=== PATIENT | female | born 1965 | race Caucasian/White ===

== ENCOUNTER 2016-11-25 16:35 | Emergency (ER) | payer BC ==
--- NOTE | 2016-11-25 17:40 | DIAGNOSTIC IMAGING REPORT ---
PROCEDURE: CT HEAD WITHOUT CONTRAST INDICATION: RIGHT SIDE NUMBNESS; HEADACHE TECHNIQUE: Noncontrast axial images with sagittal and coronal reformations. COMPARISON: None. FINDINGS: Sulci, ventricular system, and brain parenchyma are normal. Right choroid plexus cyst. No evidence of acute intracranial process. Visualized mastoids and sinuses are clear. IMPRESSION: 1. Negative non-enhanced head CT. 2. Findings discussed with Dr. Sullivan at 05:39 p.m.[facility] Time
--- NOTE | 2016-11-25 17:40 | DIAGNOSTIC IMAGING REPORT ---
PROCEDURE: CT HEAD WITHOUT CONTRAST INDICATION: RIGHT SIDE NUMBNESS; HEADACHE TECHNIQUE: Noncontrast axial images with sagittal and coronal reformations. COMPARISON: None. FINDINGS: Sulci, ventricular system, and brain parenchyma are normal. Right choroid plexus cyst. No evidence of acute intracranial process. Visualized mastoids and sinuses are clear. IMPRESSION: 1. Negative non-enhanced head CT. 2. Findings discussed with Dr. Sullivan at 05:39 p.m.[facility] Time
--- NOTE | 2016-11-25 17:44 | DIAGNOSTIC IMAGING REPORT ---
PROCEDURE: XR CHEST 2 VIEW INDICATION: CHEST PAIN TECHNIQUE: PA and lateral view. COMPARISON: None. FINDINGS: Lungs are clear. Cardiovascular structures are normal. Bony thorax is unremarkable. IMPRESSION: 1. Negative chest.
--- NOTE | 2016-11-25 18:07 | ED CLINICAL REPORT ---
Clinical Report - Physicians/Mid Levels [facility] [address] [place] [place] [address] 11/25/2016 16:38 Patient: JOYA OAKES Time Seen: 16:37. Arrived- By private vehicle. Historian- patient and family. HISTORY OF PRESENT ILLNESS Chief Complaint: PARESTHESIA. Headache. The patient has had new onset of numbness of the right arm, right hand, right leg and right foot. She has had tingling of the right arm, right hand, right leg and right foot. No impaired speech or swallowing, visual disturbance or recent fall. No difficulty walking. This started noted intermittently for about 1 week, recurred about 2 hours ago and is still present. It was gradual in onset and has been waxing/waning. At its maximum deficit described as moderate. When seen in the E.D.,deficit described as moderate. No altered mental status, seizure or blackouts. Usually is alert and oriented X3 and has normal mobility. (Pt was siting under a hair rotary drier having her hair done when the symptoms recurred. She states, "it is like a panic attack"). Similar symptoms previously: Many times. ( Pt states that when she lived in [place] she had regular visits to the ED with panic attacks. She has similar symptoms with these episodes). Recent medical care: Not recently seen/assessed. REVIEW OF SYSTEMS Last normal menstrual period was 1 week ago. No fever, chest pain, difficulty breathing, cough or sputum production. No sore throat, abdominal pain, nausea, black stools or difficulty with urination. No skin rash, joint pain, vomiting, bloody stools or back pain. The patient has had a headache. All systems otherwise negative, except as recorded above. PAST HISTORY See nurses notes. ( Primary physician: Iam Oliva, [place], [place] SURGERIES: R Breast.). No history of stroke, seizure, dementia, coronary artery disease or atrial fibrillation. History of migraine headaches. Moderate anxiety with panic attacks. SOCIAL HISTORY Never smoker. Occasional alcohol use. No drug use. ADDITIONAL NOTES The nursing notes have been reviewed. PHYSICAL EXAM Vital Signs: 11/25/2016 16:39 BP: 166/105. HR: 105. RR: 16. O2 saturation: 95%. Temp: 99.3 F. Pain level now: 9/10. Appearance: Alert. Anxious. The patient is agitated. Odor of alcohol is not present. Speech is not slurred. Patient in moderate distress. Head: Head atraumatic. Eyes: Pupils equal, round and reactive to light. No dysconjugate gaze. ENT: Normal ENT inspection. Airway intact. Pharynx normal. Neck: Normal inspection. Neck supple. No meningeal signs or carotid bruit. CVS: Normal heart rate and rhythm. Heart sounds normal. Pulses normal. Respiratory: No respiratory distress. Breath sounds normal. Abdomen: Soft and nontender. Back: Normal inspection. Skin: Skin warm and dry. Normal skin color. Normal skin turgor. Extremities: Extremities exhibit normal ROM. No lower extremity edema. Neuro: Alert. Oriented X 3. Alertness is not decreased. Verbal response is not abnormal. Response to pain is not abnormal. No aphasia. Abnormal mood/affect. Speech normal. No dysphasia or dysarthria. Cranial nerves normal (as tested). No facial weakness. No cerebellar findings. No motor deficit. No sensory deficit. Reflexes normal. LABS, X-RAYS, AND EKG EKG: EKG time: (16:54). Normal sinus rhythm. Rate: 85. Normal P waves. Normal KEVEN. Normal QRS complex. Normal axis. Normal ST and T waves. T wave flattening (lead III is isoelectric). The study has been interpreted contemporaneously by me. The EKG appears to be a good tracing. Rhythm Strip #1: Normal sinus rhythm. Regular rhythm. Narrow QRS complexes. No ectopy. Chest X-ray: No acute disease. Normal lung markings present. Normal heart size. Mediastinum normal. Great vessels normal. Soft tissues normal. No infiltrate. No fracture. Views: PA and lateral. Technique: good. The X-rays were interpreted contemporaneously by me. CT Head: Normal study. No acute changes. No bony abnormalities, no hemorrhage, no intracranial mass, no midline shift and no hydrocephalus. No atrophy. Head CT performed without contrast. The study was independently viewed by me, interpreted by the radiologist and discussed with the radiologist. Laboratory Tests: UA-Culture if indicated: (TREVON: 11/25/2016 17:30) ( [facility] 11/25/2016 17:50) IP Test Result Flag Units (Reference) URINE COLOR YELLOW URINE APPEARANCE CLEAR URINE GLUCOSE NEGATIVE (NEGATIVE) URINE BILIRUBIN NEGATIVE (NEGATIVE) URINE KETONE NEGATIVE (NEGATIVE) URINE SPECIFIC GRAVITY 1.025 (1.010-1.030) URINE PH 6.0 (5.0-8.0) URINE PROTEIN NEGATIVE (NEGATIVE) URINE UROBILINOGEN 0.2 EU/dL (0.2-1.0) URINE NITRITE NEGATIVE (NEGATIVE) URINE BLOOD NEGATIVE (NEGATIVE) URINE LEUK ESTERASE NEGATIVE (NEGATIVE) Urine: (TREVON: 11/25/2016 17:30) ( [facility] 11/25/2016 17:50) Final results Test Result Flag Units (Reference) URINE NEGATIVE ESR: (TREVON: 11/25/2016 17:00) ( [facility] 11/25/2016 17:40) Final results Test Result Flag Units (Reference) SED RATE WESTERGREN 8 mm/hr (0-20) CBC w Diff: (TREVON: 11/25/2016 17:00) ( [facility] 11/25/2016 17:19) Final results Test Result Flag Units (Reference) WHITE BLOOD COUNT 10.6 K/uL (4.5-11.5) RED BLOOD COUNT 5.17 M/uL (4.00-5.20) HEMOGLOBIN 14.9 gm/dL (12.0-16.0) HEMATOCRIT 44.3 % (36.0-46.0) MEAN CELL VOLUME 86 fL (80-100) MEAN CORPUSCULAR HGB 29 pg (26-34) MEAN CORPUSCULAR HGB CONC 34 g/dL (31-37) RED CELL DISTRIBUTION WIDTH 12.6 % (11.6-14.8) PLATELET COUNT 276 K/uL (150-400) NEUTROPHIL % 73.2 % (50-75) LYMPH % 21.2 L % (25-40) MONO % 4.6 % (3-14) EOSINOPHIL % 0.7 % (0-4) BASOPHIL % 0.3 % (0-2) PT with INR: (TREVON: 11/25/2016 17:00) ( [facility] 11/25/2016 17:44) Final results Test Result Flag Units (Reference) INR 1.0 (0.8-1.2) Low Intensity Therapy: INR 1.5-2.0 PT range 18.5-23.1Mod.Intensity Therapy: INR 2.0-3.0 PT range 23.1-31.5High Intensity Therapy: INR 2.5-3.5 PT range 27.4-35.5High Intensity Therapy 2: INR 3.0-4.0 PT range 31.5-39.3 D-DIMER QUANTITATIVE < 0.27 L ug/mLFEU (0.27-0.52) The primary value of this quantitative assay relates toits negative predictive value (i.e. exclusion) of pulmonaryembolism/deep vein thrombosis/DIC.Elevated levels of d-dimer may also occur with:, age, cancer, inflammation, liver disease,post-op, infection, hematoma, coronary disease, peripheralarteriopathy, bleeding disorders and thrombolytic treatment.Results should be correlated with other clinical andradiological data.Testing Methodology: Latex Immunoassay BNP: (TREVON: 11/25/2016 17:00) ( [facility] 11/25/2016 17:40) Final results Test Result Flag Units (Reference) B-TYPE NATRIURETIC PEPTIDE 24.6 pg/ml (5-100) Lipase: (TREVON: 11/25/2016 17:00) ( [facility] 11/25/2016 17:44) Final results Test Result Flag Units (Reference) LIPASE 121 U/L (73-393) AMYLASE 30 U/L (25-115) THYROID STIMULATING HORMONE 1.762 uIU/mL (0.34-3.74) CHEM 13 PANEL: (TREVON: 11/25/2016 17:00) ( [facility] 11/25/2016 17:44) Final results Test Result Flag Units (Reference) GLUCOSE 133 H mg/dL (70-110) BUN 13 mg/dL (7-18) CREATININE 0.9 mg/dL (0.6-1.3) Estimated GFR >60 mL/min Estimated GFR- >60 mL/min Note: Persistent reduction over 3 months in eGFR<60 mL/min/1.73 m2 defines CKD. Patients with eGFR values>=60 mL/min/1.73 m2 may also have CKD if evidence ofpersistent proteinuria. Additional information may be foundat www.kidney.org. SODIUM 139 mmol/L (136-145) POTASSIUM 3.6 mmol/L (3.5-5.1) CHLORIDE 99 mmol/L (98-107) CARBON DIOXIDE 25 mmol/L (21-32) CALCIUM 9.3 mg/dL (8.5-10.1) TOTAL PROTEIN 7.6 g/dL (6.4-8.2) ALBUMIN 4.3 g/dL (3.3-5.0) BILIRUBIN, TOTAL 0.5 mg/dL (0.0-1.0) ALKALINE PHOSPHATASE 72 U/L (46-116) AST (SGOT) 20 U/L (15-37) ALT (SGPT) 24 U/L (12-78) MAGNESIUM 1.9 mg/dL (1.8-2.4) CPK 51 U/L (24-260) TROPONIN I 0.08 ng/mL (0.00-1.5) TROPONIN REFERENCE RANGE:<0.1 NEGATIVE0.1-1.5 INDETERMINANT>1.5 POSITIVE . Bedside Tests: Glucose: mild hyperglycemia - 134 (performed at bedside). Pulse Oximetry: 11/25/2016 16:39 O2 saturation: 95%. (FIO2 - room air). Interpretation: normal. PROGRESS AND PROCEDURES Course of Care: Normal Saline 1 liter IVPB given. Ativan 0.5mg IVP given. Very unlikely that she has SAH or other intracranial bleeding as she has only had CORBETT for about [address] - LP is not clinically indicated. She has a long history of anxiety with panic attacks and she feels that this is c/w panic. She had been sitting under a hair rotary drier getting her hair done when she began to note these symptoms 18:05 11/25/16. Patient is stable. Physical exam findings are improved. Symptoms much better. 11/25/2016 18:01 BP: 126/72. HR: 88. RR: 18. O2 saturation: 99%. Patient/family counseled. Disposition: Discharged. Condition: stable and improved. CLINICAL IMPRESSION Acute vascular headache. No treatment resistant headache. Paresthesia (right upper and lower extremities). Anxiety reaction with hyperventilation. INSTRUCTIONS Do not work for three days. Drink plenty of fluids. No alcohol until released. Warnings: Further evaluation is necessary. It is very important to follow up with a physician. GENERAL WARNINGS: Return or contact your physician immediately if your condition worsens or changes unexpectedly, if not improving as expected, or if other problems arise. Prescription Medications: Ativan 1 mg: take 1 orally every 8 hours as needed for anxiety or sleep. Dispense ten (10). No refill. Substitution is permissible. Follow-up: Follow up with your doctor [facility] in about two days. (Electronically signed by Nicholas Sullivan DO 11/25/2016 23:04)
--- NOTE | 2016-11-25 18:07 | ED NURSING NOTES ---
Clinical Report - Nurses [facility] [place] [address] 11/25/2016 16:38 [id number] Triage time 16:35 Nov 25 2016. Acuity: LEVEL 3. Chief Complaint: HEADACHE and NUMBNESS. Alert. DEEPTHI COMA SCORE: Boyers Coma Scale: 15- eyes open spontaneously (4); best verbal response- oriented x 4 (5); best motor response- obeys commands (6). --16:49 Hipolito Cabrales R.N. 16:39 11/25/16. BP: 166/105. HR: 105. RR: 16. O2 saturation: 95% on room air. Temp: 99.3 F. Pain level now: 04/22. Additional comments: Head pain. --16:49 Hipolito Cabrales R.N. Weight: 89.6 kg measured. Height/Length: 67 inches Per Patient. BMI: 31. --16:43 Hipolito Cabrales R.N. Medications None. --16:42 Hipolito Cabrales R.N. Allergies No Known Drug Allergy. --16:42 Hipolito Cabrales R.N. Medication/allergy information source: the patient. --16:49 Hipolito Cabrales R.N. History Arrived by private vehicle. Historian: patient. Accompanied by family. Primary physician ([facility], [place], [place]). ( CORBETT associated with RUE and RLE numbness+tingling.). This started about 2 hours ago. Patient was last known well (about 2 hours ago). She has had nausea and numbness of the right arm and leg. 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 PAST MEDICAL HX: Immunizations: status is unknown. Last normal menstrual period was 1 week ago. SOCIAL HX: Never smoker. Alcohol use; consumes wine by the glass occasionally. No drug use. No recent travel. No infectious disease exposure. ABUSE ASSESSMENT: No report of abuse. FALL RISK ASSESSMENT: Fall risk assessment completed. No fall risk identified. NUTRITIONAL RISK ASSESSMENT: The nutritional risk assessment revealed no deficiencies. FUNCTIONAL ASSESSMENT: Functional assessment: no impairments noted. LEARNING NEEDS ASSESSMENT: The learning needs assessment revealed no barriers. SKIN INTEGRITY ASSESSMENT: Skin integrity risk assessment completed. No skin integrity risk identified. --16:49 Hipolito Cabrales R.N. PROBLEMS: Panic Attack. Migraine Headache. Anxiety Reaction. --16:47 Hipolito Cabrales R.N. ADDITIONAL SURGERIES: R Breast. --16:47 Hipolito Cabrales R.N. Interventions ID band on patient. To treatment room. --16:49 Hipolito Cabrales R.N. PHYSICAL ASSESSMENT To room via wheelchair. GENERAL / NEURO / PSYCH: Alert. Oriented X 4. Speech within normal limits. HEENT: No facial asymmetry noted. RESPIRATORY: Respirations not labored. CVS: Capillary refill less than 2 seconds. GI / : The patient has had nausea. Abdomen soft. SKIN: Skin is warm and dry. --16:50 Hipolito Cabrales R.N. NURSING PROGRESS NOTES Patient gowned. Reassurance given. Lights dimmed. Patient identifiers checked. Call light placed in reach. Side rails up. Bed placed in lowest position. Brakes of bed on. Patient ready for evaluation- chart flagged and ED physician notified. --16:50 Hipolito Cabrales R.N. 16:40 11/25/16. Finger stick glucose: 134 mg/dL; performed by nurse; result shown to the ED physician. --16:51 Hipolito Cabrales R.N. EKG time: (1654). EKG was ordered, performed by a tech and shown to the ED physician. --16:54 Kesha Mcclelland 16:48 11/25/2016 Site #1 started via IV in the left with an 20g angiocath, with aseptic technique and good blood return; one attempt. Blood drawn: rainbow set. Labeled in the presence of the patient. Saline lock flushed with 10 mL saline (start by PAO Fournier). --16:58 Hipolito Cabrales R.N. 16:54 11/25/2016 Started bag #1 1000 mL IV Fluids IV NS (Saline); at 1000 mL/hr over 60 minute(s) via site #1 via IV pump. Allergies verified and confirmed 5 rights. IV patency established. IV site checked: no pain, redness, or swelling. IV flushed thoroughly pre- and post-medication administration. --16:59 Hipolito Cabrales R.N. 16:54 11/25/2016 Zofran (Ondansetron HCl) IVP 4 mg given over 2 minute(s) via site #1. Allergies verified and confirmed 5 rights. IV patency established. IV site checked: no pain, redness, or swelling. IV flushed thoroughly pre- and post-medication administration. IVP given by RN. --16:59 Hipolito Cabrales R.N. Patient transported to radiology and CT by stretcher with [employer]. --17:08 Hipolito Cabrales R.N. 17:00 11/25/2016 Ativan (LORazepam) IVP 0.5 mg given over 2 minute(s) via site #1. Allergies verified, confirmed 5 rights and sedative warning given. IV patency established. IV site checked: no pain, redness, or swelling. IV flushed thoroughly pre- and post-medication administration. IVP given by RN. --17:10 Hipolito Cabrales R.N. 18:01 11/25/16. BP: 126/72. HR: 88. RR: 18. O2 saturation: 99%. --18:06 Shantanu Mae R.N. 17:35 11/25/16. BP: 122/64. HR: 86. RR: 18. O2 saturation: 99%. 17:20 11/25/16. BP: 127/67. HR: 72. RR: 18. O2 saturation: 95%. 17:05 11/25/16. BP: 127/67. HR: 88. RR: 18. O2 saturation: 95%. 16:50 11/25/16. BP: 127/67. HR: 74. RR: 18. O2 saturation: 94%. --18:09 Shantanu Mae R.N. DISPOSITION / DISCHARGE 18:00 11/25/2016 Site #1 removed upon discharge. Catheter intact. Pressure dressing applied. --18:45 Shantanu Mae R.N. 18:00 11/25/2016 IV Fluids IV NS Discontinued: bag #1 infused upon discharge. Total amount infused: 600 mL. IV patency established. IV site checked: no pain, redness, or swelling. IV flushed thoroughly. --18:46 Shantanu Mae R.N. Departure time: 18:Nov 25 2016. Condition at departure: improved. No learning barriers present. Discharge instructions provided and reviewed with the patient. Reviewed warnings. Reviewed medication(s). Treatments reviewed. Reviewed referrals. Patient verbalized understanding. Written instructions provided in Luxembourgish. The patient was discharged home and accompanied by spouse. She left the Emergency Department ambulatory and via private vehicle. Spouse driving. --18:46 Shantanu Mae R.N. 18:01 11/25/16. BP: 126/72. HR: 88. RR: 18. O2 saturation: 99%. --18:46 Shantanu Mae R.N. Locked/Released at 11/25/2016 18:46 by Shantanu Mae R.N.
--- NOTE | 2016-11-25 18:07 | ED ORDER SUMMARY ---
..... Patient: JOYA OAKES OrderSheet [facility] VisitID: [id number] [place] [address] 51y, F Registration Date/Time: 11/25/2016 ORDER SHEET Weight: 89.6 kg (measured) Allergies: No Known Drug Allergy GENERAL ORDERS: Chest 2V Urgent (16:42 11/25/2016 PHutchinson DO) (Ack 16:44 TBergley) (17:13 JRomanelli R.N.) CT Head wo Cont Urgent (16:42 11/25/2016 PHutchinson DO) (Ack 16:44 TBergley) (17:13 JRomanelli R.N.) Gear Hobber Set Up Operator (Continuous) (16:42 11/25/2016 PHutchinson DO) (Ack 16:44 TBergley) (16:50 JRomanelli R.N.) UA-Culture if indicated Urgent (16:43 11/25/2016 PHutchinson DO) (Ack 16:44 TBergley) (18:10 ALawrence ER Tech1) PT with INR Urgent (16:43 11/25/2016 PHutchinson DO) (Ack 16:44 TBergley) (16:50 JRomanelli R.N.) Cardiac Panel Stat (16:43 11/25/2016 PHutchinson DO) (Ack 16:44 TBergley) (16:50 JRomanelli R.N.) BNP Urgent (16:43 11/25/2016 PHutchinson DO) (Ack 16:44 TBergley) (16:50 JRomanelli R.N.) D-Dimer Urgent (16:43 11/25/2016 PHutchinson DO) (Ack 16:44 TBergley) (16:50 JRomanelli R.N.) Urine Drug Screen Urgent (16:43 11/25/2016 PHutchinson DO) (Ack 16:44 TBergley) (18:10 ALawrence ER Tech1) Urine Urgent (16:43 11/25/2016 PHutchinson DO) (Ack 16:44 TBergley) (18:10 ALawrence ER Tech1) Lipase Urgent (16:43 11/25/2016 PHutchinson DO) (Ack 16:44 TBergley) (16:50 JRomanelli R.N.) Amylase Urgent (16:43 11/25/2016 PHwychinson DO) (Ack 16:44 TBergley) (16:50 JRomanelli R.N.) ESR Urgent (16:43 11/25/2016 PHoss healthson DO) (Ack 16:44 TBergley) (16:50 JRomanelli R.N.) TSH Urgent (16:43 11/25/2016 PHoss healthson DO) (Ack 16:44 TBergley) (16:50 JRomanelli R.N.) Pulse [facility]xim[facility] (16:43 [facility]2016 [facility] (Ack 16:44 TBergley) (16:50 JRomanelli R.N.) EKG - ER Stat (16:43 11/25/2016 [facility]) (Ack 16:44 TBergley) (16:59 JRomanelli R.N.) POC Glucose (16:43 11/25/2016 [facility]) (Ack 16:44 TBergley) (16:50 JRomanelli R.N.) MEDICATION ORDERS: IV FLUIDS: IV NS : initial bolus 1000 mL (1000 mL/hr), then 500 mL/hr for X2 (NOW) (16:43 11/25/2016 [facility]) (16:59 JRomanelli R.N.) Ativan IV 0.5 mg (HIGH ALERT MEDICATION, NOW) (16:43 11/25/2016 [facility]) (17:10 JRomanelli R.N.) Zofran IV 4 mg (NOW) (16:53 11/25/2016 [facility]) (16:59 JRomanelli R.N.) ORDER SHEET NOTES: [Electronically signed by Shantanu Mae R.N. (18:46 11/25/2016)] [Electronically signed by Nicholas Sullivan DO (23:04 11/25/2016)] [Electronically locked/signed by Shantanu Mae R.N. (18:46 11/25/2016)]
--- NOTE | 2016-11-25 18:07 | ED CLINICAL REPORT ---
Clinical Report - Physicians/Mid Levels [facility] [address] [place] [address] 11/25/2016 16:38 Patient: JOYA OAKES Time Seen: 16:37. Arrived- By private vehicle. Historian- patient and family. HISTORY OF PRESENT ILLNESS Chief Complaint: PARESTHESIA. Headache. The patient has had new onset of numbness of the right arm, right hand, right leg and right foot. She has had tingling of the right arm, right hand, right leg and right foot. No impaired speech or swallowing, visual disturbance or recent fall. No difficulty walking. This started noted intermittently for about 1 week, recurred about 2 hours ago and is still present. It was gradual in onset and has been waxing/waning. At its maximum deficit described as moderate. When seen in the E.D.,deficit described as moderate. No altered mental status, seizure or blackouts. Usually is alert and oriented X3 and has normal mobility. (Pt was siting under a hair cloth drier having her hair done when the symptoms recurred. She states, "it is like a panic attack"). Similar symptoms previously: Many times. ( Pt states that when she lived in [place] she had regular visits to the ED with panic attacks. She has similar symptoms with these episodes). Recent medical care: Not recently seen/assessed. REVIEW OF SYSTEMS Last normal menstrual period was 1 week ago. No fever, chest pain, difficulty breathing, cough or sputum production. No sore throat, abdominal pain, nausea, black stools or difficulty with urination. No skin rash, joint pain, vomiting, bloody stools or back pain. The patient has had a headache. All systems otherwise negative, except as recorded above. PAST HISTORY See nurses notes. ( Primary physician: Iam Oliva, [place], [place] SURGERIES: R Breast.). No history of stroke, seizure, dementia, coronary artery disease or atrial fibrillation. History of migraine headaches. Moderate anxiety with panic attacks. SOCIAL HISTORY Never smoker. Occasional alcohol use. No drug use. ADDITIONAL NOTES The nursing notes have been reviewed. PHYSICAL EXAM Vital Signs: 11/25/2016 16:39 BP: 166/105. HR: 105. RR: 16. O2 saturation: 95%. Temp: 99.3 F. Pain level now: 9/10. Appearance: Alert. Anxious. The patient is agitated. Odor of alcohol is not present. Speech is not slurred. Patient in moderate distress. Head: Head atraumatic. Eyes: Pupils equal, round and reactive to light. No dysconjugate gaze. ENT: Normal ENT inspection. Airway intact. Pharynx normal. Neck: Normal inspection. Neck supple. No meningeal signs or carotid bruit. CVS: Normal heart rate and rhythm. Heart sounds normal. Pulses normal. Respiratory: No respiratory distress. Breath sounds normal. Abdomen: Soft and nontender. Back: Normal inspection. Skin: Skin warm and dry. Normal skin color. Normal skin turgor. Extremities: Extremities exhibit normal ROM. No lower extremity edema. Neuro: Alert. Oriented X 3. Alertness is not decreased. Verbal response is not abnormal. Response to pain is not abnormal. No aphasia. Abnormal mood/affect. Speech normal. No dysphasia or dysarthria. Cranial nerves normal (as tested). No facial weakness. No cerebellar findings. No motor deficit. No sensory deficit. Reflexes normal. LABS, X-RAYS, AND EKG EKG: EKG time: (16:54). Normal sinus rhythm. Rate: 85. Normal P waves. Normal KEVEN. Normal QRS complex. Normal axis. Normal ST and T waves. T wave flattening (lead III is isoelectric). The study has been interpreted contemporaneously by me. The EKG appears to be a good tracing. Rhythm Strip #1: Normal sinus rhythm. Regular rhythm. Narrow QRS complexes. No ectopy. Chest X-ray: No acute disease. Normal lung markings present. Normal heart size. Mediastinum normal. Great vessels normal. Soft tissues normal. No infiltrate. No fracture. Views: PA and lateral. Technique: good. The X-rays were interpreted contemporaneously by me. CT Head: Normal study. No acute changes. No bony abnormalities, no hemorrhage, no intracranial mass, no midline shift and no hydrocephalus. No atrophy. Head CT performed without contrast. The study was independently viewed by me, interpreted by the radiologist and discussed with the radiologist. Laboratory Tests: UA-Culture if indicated: (TREVON: 11/25/2016 17:30) ( [facility] 11/25/2016 17:50) IP Test Result Flag Units (Reference) URINE COLOR YELLOW URINE APPEARANCE CLEAR URINE GLUCOSE NEGATIVE (NEGATIVE) URINE BILIRUBIN NEGATIVE (NEGATIVE) URINE KETONE NEGATIVE (NEGATIVE) URINE SPECIFIC GRAVITY 1.025 (1.010-1.030) URINE PH 6.0 (5.0-8.0) URINE PROTEIN NEGATIVE (NEGATIVE) URINE UROBILINOGEN 0.2 EU/dL (0.2-1.0) URINE NITRITE NEGATIVE (NEGATIVE) URINE BLOOD NEGATIVE (NEGATIVE) URINE LEUK ESTERASE NEGATIVE (NEGATIVE) Urine: (TREVON: 11/25/2016 17:30) ( [facility] 11/25/2016 17:50) Final results Test Result Flag Units (Reference) URINE NEGATIVE ESR: (TREVON: 11/25/2016 17:00) ( [facility] 11/25/2016 17:40) Final results Test Result Flag Units (Reference) SED RATE WESTERGREN 8 mm/hr (0-20) CBC w Diff: (TREVON: 11/25/2016 17:00) ( [facility] 11/25/2016 17:19) Final results Test Result Flag Units (Reference) WHITE BLOOD COUNT 10.6 K/uL (4.5-11.5) RED BLOOD COUNT 5.17 M/uL (4.00-5.20) HEMOGLOBIN 14.9 gm/dL (12.0-16.0) HEMATOCRIT 44.3 % (36.0-46.0) MEAN CELL VOLUME 86 fL (80-100) MEAN CORPUSCULAR HGB 29 pg (26-34) MEAN CORPUSCULAR HGB CONC 34 g/dL (31-37) RED CELL DISTRIBUTION WIDTH 12.6 % (11.6-14.8) PLATELET COUNT 276 K/uL (150-400) NEUTROPHIL % 73.2 % (50-75) LYMPH % 21.2 L % (25-40) MONO % 4.6 % (3-14) EOSINOPHIL % 0.7 % (0-4) BASOPHIL % 0.3 % (0-2) PT with INR: (TREVON: 11/25/2016 17:00) ( [facility] 11/25/2016 17:44) Final results Test Result Flag Units (Reference) INR 1.0 (0.8-1.2) Low Intensity Therapy: INR 1.5-2.0 PT range 18.5-23.1Mod.Intensity Therapy: INR 2.0-3.0 PT range 23.1-31.5High Intensity Therapy: INR 2.5-3.5 PT range 27.4-35.5High Intensity Therapy 2: INR 3.0-4.0 PT range 31.5-39.3 D-DIMER QUANTITATIVE < 0.27 L ug/mLFEU (0.27-0.52) The primary value of this quantitative assay relates toits negative predictive value (i.e. exclusion) of pulmonaryembolism/deep vein thrombosis/DIC.Elevated levels of d-dimer may also occur with:, age, cancer, inflammation, liver disease,post-op, infection, hematoma, coronary disease, peripheralarteriopathy, bleeding disorders and thrombolytic treatment.Results should be correlated with other clinical andradiological data.Testing Methodology: Latex Immunoassay BNP: (TREVON: 11/25/2016 17:00) ( [facility] 11/25/2016 17:40) Final results Test Result Flag Units (Reference) B-TYPE NATRIURETIC PEPTIDE 24.6 pg/ml (5-100) Lipase: (TREVON: 11/25/2016 17:00) ( [facility] 11/25/2016 17:44) Final results Test Result Flag Units (Reference) LIPASE 121 U/L (73-393) AMYLASE 30 U/L (25-115) THYROID STIMULATING HORMONE 1.762 uIU/mL (0.34-3.74) CHEM 13 PANEL: (TREVON: 11/25/2016 17:00) ( [facility] 11/25/2016 17:44) Final results Test Result Flag Units (Reference) GLUCOSE 133 H mg/dL (70-110) BUN 13 mg/dL (7-18) CREATININE 0.9 mg/dL (0.6-1.3) Estimated GFR >60 mL/min Estimated GFR- >60 mL/min Note: Persistent reduction over 3 months in eGFR<60 mL/min/1.73 m2 defines CKD. Patients with eGFR values>=60 mL/min/1.73 m2 may also have CKD if evidence ofpersistent proteinuria. Additional information may be foundat www.kidney.org. SODIUM 139 mmol/L (136-145) POTASSIUM 3.6 mmol/L (3.5-5.1) CHLORIDE 99 mmol/L (98-107) CARBON DIOXIDE 25 mmol/L (21-32) CALCIUM 9.3 mg/dL (8.5-10.1) TOTAL PROTEIN 7.6 g/dL (6.4-8.2) ALBUMIN 4.3 g/dL (3.3-5.0) BILIRUBIN, TOTAL 0.5 mg/dL (0.0-1.0) ALKALINE PHOSPHATASE 72 U/L (46-116) AST (SGOT) 20 U/L (15-37) ALT (SGPT) 24 U/L (12-78) MAGNESIUM 1.9 mg/dL (1.8-2.4) CPK 51 U/L (24-260) TROPONIN I 0.08 ng/mL (0.00-1.5) TROPONIN REFERENCE RANGE:<0.1 NEGATIVE0.1-1.5 INDETERMINANT>1.5 POSITIVE . Bedside Tests: Glucose: mild hyperglycemia - 134 (performed at bedside). Pulse Oximetry: 11/25/2016 16:39 O2 saturation: 95%. (FIO2 - room air). Interpretation: normal. PROGRESS AND PROCEDURES Course of Care: Normal Saline 1 liter IVPB given. Ativan 0.5mg IVP given. Very unlikely that she has SAH or other intracranial bleeding as she has only had CORBETT for about [address] - LP is not clinically indicated. She has a long history of anxiety with panic attacks and she feels that this is c/w panic. She had been sitting under a hair cloth drier getting her hair done when she began to note these symptoms 18:05 11/25/16. Patient is stable. Physical exam findings are improved. Symptoms much better. 11/25/2016 18:01 BP: 126/72. HR: 88. RR: 18. O2 saturation: 99%. Patient/family counseled. Disposition: Discharged. Condition: stable and improved. CLINICAL IMPRESSION Acute vascular headache. No treatment resistant headache. Paresthesia (right upper and lower extremities). Anxiety reaction with hyperventilation. INSTRUCTIONS Do not work for three days. Drink plenty of fluids. No alcohol until released. Warnings: Further evaluation is necessary. It is very important to follow up with a physician. GENERAL WARNINGS: Return or contact your physician immediately if your condition worsens or changes unexpectedly, if not improving as expected, or if other problems arise. Prescription Medications: Ativan 1 mg: take 1 orally every 8 hours as needed for anxiety or sleep. Dispense ten (10). No refill. Substitution is permissible. Follow-up: Follow up with your doctor [facility] in about two days. (Electronically signed by Nicholas Sullivan DO 11/25/2016 23:04)
--- NOTE | 2016-11-25 18:07 | ED NURSING NOTES ---
Clinical Report - Nurses [facility] [place] [address] 11/25/2016 16:38 [id number] Triage time 16:35 Nov 25 2016. Acuity: LEVEL 3. Chief Complaint: HEADACHE and NUMBNESS. Alert. DEEPTHI COMA SCORE: Severance Coma Scale: 15- eyes open spontaneously (4); best verbal response- oriented x 4 (5); best motor response- obeys commands (6). --16:49 Hipolito Cabrales R.N. 16:39 11/25/16. BP: 166/105. HR: 105. RR: 16. O2 saturation: 95% on room air. Temp: 99.3 F. Pain level now: 04/22. Additional comments: Head pain. --16:49 Hipolito Cabrales R.N. Weight: 89.6 kg measured. Height/Length: 67 inches Per Patient. BMI: 31. --16:43 Hipolito Cabrales R.N. Medications None. --16:42 Hipolito Cabrales R.N. Allergies No Known Drug Allergy. --16:42 Hipolito Cabrales R.N. Medication/allergy information source: the patient. --16:49 Hipolito Cabrales R.N. History Arrived by private vehicle. Historian: patient. Accompanied by family. Primary physician ([facility], [place], [place]). ( CORBETT associated with RUE and RLE numbness+tingling.). This started about 2 hours ago. Patient was last known well (about 2 hours ago). She has had nausea and numbness of the right arm and leg. 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 PAST MEDICAL HX: Immunizations: status is unknown. Last normal menstrual period was 1 week ago. SOCIAL HX: Never smoker. Alcohol use; consumes wine by the glass occasionally. No drug use. No recent travel. No infectious disease exposure. ABUSE ASSESSMENT: No report of abuse. FALL RISK ASSESSMENT: Fall risk assessment completed. No fall risk identified. NUTRITIONAL RISK ASSESSMENT: The nutritional risk assessment revealed no deficiencies. FUNCTIONAL ASSESSMENT: Functional assessment: no impairments noted. LEARNING NEEDS ASSESSMENT: The learning needs assessment revealed no barriers. SKIN INTEGRITY ASSESSMENT: Skin integrity risk assessment completed. No skin integrity risk identified. --16:49 Hipolito Cabrales R.N. PROBLEMS: Panic Attack. Migraine Headache. Anxiety Reaction. --16:47 Hipolito Cabrales R.N. ADDITIONAL SURGERIES: R Breast. --16:47 Hipolito Cabrales R.N. Interventions ID band on patient. To treatment room. --16:49 Hipolito Cabrales R.N. PHYSICAL ASSESSMENT To room via wheelchair. GENERAL / NEURO / PSYCH: Alert. Oriented X 4. Speech within normal limits. HEENT: No facial asymmetry noted. RESPIRATORY: Respirations not labored. CVS: Capillary refill less than 2 seconds. GI / : The patient has had nausea. Abdomen soft. SKIN: Skin is warm and dry. --16:50 Hipolito Cabrales R.N. NURSING PROGRESS NOTES Patient gowned. Reassurance given. Lights dimmed. Patient identifiers checked. Call light placed in reach. Side rails up. Bed placed in lowest position. Brakes of bed on. Patient ready for evaluation- chart flagged and ED physician notified. --16:50 Hipolito Cabrales R.N. 16:40 11/25/16. Finger stick glucose: 134 mg/dL; performed by nurse; result shown to the ED physician. --16:51 Hipolito Cabrales R.N. EKG time: (1654). EKG was ordered, performed by a tech and shown to the ED physician. --16:54 Kesha Mcclelland 16:48 11/25/2016 Site #1 started via IV in the left with an 20g angiocath, with aseptic technique and good blood return; one attempt. Blood drawn: rainbow set. Labeled in the presence of the patient. Saline lock flushed with 10 mL saline (start by PAO Fournier). --16:58 Hipolito Cabrales R.N. 16:54 11/25/2016 Started bag #1 1000 mL IV Fluids IV NS (Saline); at 1000 mL/hr over 60 minute(s) via site #1 via IV pump. Allergies verified and confirmed 5 rights. IV patency established. IV site checked: no pain, redness, or swelling. IV flushed thoroughly pre- and post-medication administration. --16:59 Hipolito Cabrales R.N. 16:54 11/25/2016 Zofran (Ondansetron HCl) IVP 4 mg given over 2 minute(s) via site #1. Allergies verified and confirmed 5 rights. IV patency established. IV site checked: no pain, redness, or swelling. IV flushed thoroughly pre- and post-medication administration. IVP given by RN. --16:59 Hipolito Cabrales R.N. Patient transported to radiology and CT by stretcher with [employer]. --17:08 Hipolito Cabrales R.N. 17:00 11/25/2016 Ativan (LORazepam) IVP 0.5 mg given over 2 minute(s) via site #1. Allergies verified, confirmed 5 rights and sedative warning given. IV patency established. IV site checked: no pain, redness, or swelling. IV flushed thoroughly pre- and post-medication administration. IVP given by RN. --17:10 Hipolito Cabrales R.N. 18:01 11/25/16. BP: 126/72. HR: 88. RR: 18. O2 saturation: 99%. --18:06 Shantanu Mae R.N. 17:35 11/25/16. BP: 122/64. HR: 86. RR: 18. O2 saturation: 99%. 17:20 11/25/16. BP: 127/67. HR: 72. RR: 18. O2 saturation: 95%. 17:05 11/25/16. BP: 127/67. HR: 88. RR: 18. O2 saturation: 95%. 16:50 11/25/16. BP: 127/67. HR: 74. RR: 18. O2 saturation: 94%. --18:09 Shantanu Mae R.N. DISPOSITION / DISCHARGE 18:00 11/25/2016 Site #1 removed upon discharge. Catheter intact. Pressure dressing applied. --18:45 Shantanu Mae R.N. 18:00 11/25/2016 IV Fluids IV NS Discontinued: bag #1 infused upon discharge. Total amount infused: 600 mL. IV patency established. IV site checked: no pain, redness, or swelling. IV flushed thoroughly. --18:46 Shantanu Mae R.N. Departure time: 18:Nov 25 2016. Condition at departure: improved. No learning barriers present. Discharge instructions provided and reviewed with the patient. Reviewed warnings. Reviewed medication(s). Treatments reviewed. Reviewed referrals. Patient verbalized understanding. Written instructions provided in Maori. The patient was discharged home and accompanied by spouse. She left the Emergency Department ambulatory and via private vehicle. Spouse driving. --18:46 Shantanu Mae R.N. 18:01 11/25/16. BP: 126/72. HR: 88. RR: 18. O2 saturation: 99%. --18:46 Shantanu Mae R.N. Locked/Released at 11/25/2016 18:46 by Shantanu Mae R.N.
--- NOTE | 2016-11-25 18:07 | ED ORDER SUMMARY ---
..... Patient: JOYA OAKES OrderSheet [facility] VisitID: [id number] [place] [address] 51y, F Registration Date/Time: 11/25/2016 ORDER SHEET Weight: 89.6 kg (measured) Allergies: No Known Drug Allergy GENERAL ORDERS: Chest 2V Urgent (16:42 11/25/2016 PHutchinson DO) (Ack 16:44 TBergley) (17:13 JRomanelli R.N.) CT Head wo Cont Urgent (16:42 11/25/2016 PHutchinson DO) (Ack 16:44 TBergley) (17:13 JRomanelli R.N.) Ic Engineer (Continuous) (16:42 11/25/2016 PHutchinson DO) (Ack 16:44 TBergley) (16:50 JRomanelli R.N.) UA-Culture if indicated Urgent (16:43 11/25/2016 PHutchinson DO) (Ack 16:44 TBergley) (18:10 ALawrence ER Tech1) PT with INR Urgent (16:43 11/25/2016 PHutchinson DO) (Ack 16:44 TBergley) (16:50 JRomanelli R.N.) Cardiac Panel Stat (16:43 11/25/2016 PHutchinson DO) (Ack 16:44 TBergley) (16:50 JRomanelli R.N.) BNP Urgent (16:43 11/25/2016 PHutchinson DO) (Ack 16:44 TBergley) (16:50 JRomanelli R.N.) D-Dimer Urgent (16:43 11/25/2016 PHutchinson DO) (Ack 16:44 TBergley) (16:50 JRomanelli R.N.) Urine Drug Screen Urgent (16:43 11/25/2016 PHutchinson DO) (Ack 16:44 TBergley) (18:10 ALawrence ER Tech1) Urine Urgent (16:43 11/25/2016 PHutchinson DO) (Ack 16:44 TBergley) (18:10 ALawrence ER Tech1) Lipase Urgent (16:43 11/25/2016 PHutchinson DO) (Ack 16:44 TBergley) (16:50 JRomanelli R.N.) Amylase Urgent (16:43 11/25/2016 PHnvchinson DO) (Ack 16:44 TBergley) (16:50 JRomanelli R.N.) ESR Urgent (16:43 11/25/2016 [facility]) (Ack 16:44 TBergley) (16:50 JRomanelli R.N.) TSH Urgent (16:43 11/25/2016 [facility]) (Ack 16:44 TBergley) (16:50 JRomanelli R.N.) Pulse oximeter (16:43 11/25/2016 [facility] (Ack 16:44 TBergley) (16:50 JRomanelli R.N.) EKG - ER Stat (16:43 11/25/2016 [facility]) (Ack 16:44 TBergley) (16:59 JRomanelli R.N.) POC Glucose (16:43 11/25/2016 [facility]) (Ack 16:44 TBergley) (16:50 JRomanelli R.N.) MEDICATION ORDERS: IV FLUIDS: IV NS : initial bolus 1000 mL (1000 mL/hr), then 500 mL/hr for X2 (NOW) (16:43 11/25/2016 [facility]) (16:59 JRomanelli R.N.) Ativan IV 0.5 mg (HIGH ALERT MEDICATION, NOW) (16:43 11/25/2016 [facility]) (17:10 JRomanelli R.N.) Zofran IV 4 mg (NOW) (16:53 11/25/2016 [facility]) (16:59 JRomanelli R.N.) ORDER SHEET NOTES: [Electronically signed by Shantanu Mae R.N. (18:46 11/25/2016)] [Electronically signed by Nicholas Sullivan DO (23:04 11/25/2016)] [Electronically locked/signed by Shantanu Mae R.N. (18:46 11/25/2016)]
--- NOTE | 2016-11-25 23:04 | ED MAR SUMMARY ---
..... Medication Administration Record [facility] [address] [place] [address] Patient: JOYA OAKES Visit ID: [id number] 51y, F Weight: 89.6 kg Height/Length: 67 in BMI: 31 ALLERGIES: No Known Drug Allergy Start 16:54 11/25/2016 Hipolito Cabrales RMedhat, Stop 18:00 11/25/2016 Shantanu Mae R.N. Medication Administered: IV NS (SALINE), Dose: IV Fluids over 60 minute(s), Rate: 1000 mL/hr, Dispensed: 1000 mL bag, Site: #1 left. Medication Ordered: IV NS : initial bolus 1000 mL (1000 mL/hr), then 500 mL/hr for X2 (NOW). Given 16:54 11/25/2016 Hipolito Cabrales RMarvelN. Medication Administered: ZOFRAN [IVP] (ONDANSETRON HCL), Dose: 4 mg IVP over 2 minute(s), Site: #1 left. Medication Ordered: Zofran IV 4 mg (NOW). Given 17:00 11/25/2016 Hipolito Cabrales RMarvelN. Medication Administered: ATIVAN [IVP] (LORAZEPAM), Dose: 0.5 mg IVP over 2 minute(s), Site: #1 left. Medication Ordered: Ativan IV 0.5 mg (HIGH ALERT MEDICATION, NOW).
--- NOTE | 2016-11-25 23:04 | ED MED RECONCILIATION SUMMARY ---
Patient: JOYA OAKES Medication Reconciliation Report [facility] VisitID: [id number] [address] [place] [address] 51y, F Registration Date/Time: 11/25/2016 Weight: 89.6 kg Height/Length: 67 in. BMI: 31.0 ALLERGIES: No Known Drug Allergy The patient's Home Medications are listed below: NONE. The source(s) of the original Home Medication information: patient The following Medications were given to the patient in the Emergency Department: IV NS IV Fluids bolus 0, then 1000 mL/hr, administered: 11/25/2016 4:54:00 PM Zofran [IVP] IVP 4 mg, administered: 11/25/2016 4:54:00 PM Ativan [IVP] IVP 0.5 mg, administered: 11/25/2016 5:00:00 PM The following Medications were prescribed to the patient: Ativan 1 mg: take 1 orally every 8 hours as needed for anxiety or sleep. Dispense ten (10). No refill. Substitution is permissible. -- Nicholas Sullivan,
--- NOTE | 2016-11-25 23:04 | ED MAR SUMMARY ---
..... Medication Administration Record [facility] [address] [place] [address] Patient: JOYA OAKES Visit ID: [id number] 51y, F Weight: 89.6 kg Height/Length: 67 in BMI: 31 ALLERGIES: No Known Drug Allergy Start 16:54 11/25/2016 Hipolito Cabrales RMedhat, Stop 18:00 11/25/2016 Shantanu Mae R.N. Medication Administered: IV NS (SALINE), Dose: IV Fluids over 60 minute(s), Rate: 1000 mL/hr, Dispensed: 1000 mL bag, Site: #1 left. Medication Ordered: IV NS : initial bolus 1000 mL (1000 mL/hr), then 500 mL/hr for X2 (NOW). Given 16:54 11/25/2016 Hipolito Cabrales RMarvelN. Medication Administered: ZOFRAN [IVP] (ONDANSETRON HCL), Dose: 4 mg IVP over 2 minute(s), Site: #1 left. Medication Ordered: Zofran IV 4 mg (NOW). Given 17:00 11/25/2016 Hipolito Cabrales RMarvelN. Medication Administered: ATIVAN [IVP] (LORAZEPAM), Dose: 0.5 mg IVP over 2 minute(s), Site: #1 left. Medication Ordered: Ativan IV 0.5 mg (HIGH ALERT MEDICATION, NOW).
--- NOTE | 2016-11-25 23:04 | ED DISCHARGE INSTRUCTIONS ---
Patient: JOYA OAKES General Instructions [facility] VisitID: [id number] [place] [address] 51y, F Registration Date/Time: 11/25/2016 Acute vascular headache. No treatment resistant headache. Paresthesia (right upper and lower extremities). Anxiety reaction with hyperventilation. INSTRUCTIONS Do not work for three days. Drink plenty of fluids. No alcohol until released. Warnings: Further evaluation is necessary. It is very important to follow up with a physician. GENERAL WARNINGS: Return or contact your physician immediately if your condition worsens or changes unexpectedly, if not improving as expected, or if other problems arise. Prescription Medications: Ativan 1 mg: take 1 orally every 8 hours as needed for anxiety or sleep. Dispense ten (10). No refill. Substitution is permissible. Follow-up: Follow up with your doctor [facility] in about two days. ADDITIONAL INFORMATION Headache [Unspecified] The cause of your headache today is not clear, but it does not appear to be the sign of any serious illness. Under stress, some people tense the muscles of their shoulder, neck and scalp without knowing it. If this condition lasts long enough, a TENSION HEADACHE can occur. A MIGRAINE HEADACHE is caused by changes in blood flow to the brain. A migraine attack may be triggered by emotional stress, hormone changes during the menstrual cycle, oral contraceptives, alcohol use, certain foods containing tyramine, eye strain, weather changes, missing meals, lack of sleep or oversleeping. Other causes of headache include a viral illness with high fever, head injury with concussion, sinus, ear or throat infection, dental pain and TMJ (jaw joint) pain. More serious but less common causes of headache include stroke, brain hemorrhage, brain tumor, meningitis and encephalitis. Home Care: If you were given pain medicine for this headache, do not drive yourself home. Arrange for a ride, instead. When you get home, try to sleep. You should feel much better when you wake up. Apply heat to the back of your neck to relieve neck muscle spasm. Migraine headaches may respond best to an ice pack on the forehead or at the base of the skull. If you are having nausea or vomiting, follow a light diet until your headache is relieved. If you have a migraine type headache, use sunglasses when in the daylight or around bright indoor lighting until symptoms improve. Bright glaring light can worsen this kind of headache. Follow Up with your doctor if the headache is not better within the next 24 hours. If you have frequent headaches you should discuss a treatment plan with your primary care doctor. By being aware of the earliest signs of headache, and starting treatment right away, you may be able to stop the pain yourself. Get Prompt Medical Attention if any of the following occur: Worsening of your head pain or no improvement within 24 hours Repeated vomiting (unable to keep liquids down) Fever of 100.4F (38C) or higher, or as directed by your healthcare provider Stiff neck Extreme drowsiness, confusion or fainting Dizziness, vertigo (dizziness with spinning sensation) Weakness of an arm or leg or one side of the face Difficulty with speech or vision Hyperventilation Syndrome Hyperventilation Syndrome is a condition in which you lose control of your breathing. You may find yourself breathing too fast and/or too deep. This can be triggered by pain, anxiety and emotional stress. If hyperventilation continues for more than a few minutes, it can lead to a number of frightening symptoms, such as: Numbness and tingling of the hands, feet and face Clenching of the fingers or toes Dizziness Feeling like you cannot get enough air Chest pains Fainting or feeling like you are going to faint Once these symptoms begin, it is often hard to stop them because they lead to a cycle of more anxiety and more hyperventilation. It is important to understand that this is not a life-threatening condition and it will pass once you are able to relax. Relaxation and stress management methods can be learned and practiced in advance. These can help in the event of a future attack. Home Care: 1) Rest today until feeling back to normal. 2) If symptoms return: Sit or lie down. Remember that what is happening to you is temporary and will pass. Use the relaxation methods you have learned. It is no longer recommended to breathe into a paper bag. Follow Up with your doctor or as directed by our staff if symptoms recur. Get Prompt Medical Attention if any of the following occur: Increasing shortness of breath Fever of 100.0 F (38 C) or higher, or as directed by your healthcare provider Coughing up blood Chest pain that is made worse with each breath Redness, pain or swelling of the leg Ringing in your ears, Severe headache Weakness or fainting Paraesthesias Paraesthesia refers to a burning or prickling sensation that is sometimes felt in the hands, arms, legs or feet. It can also occur in other parts of the body. It can also feel like tingling or numbness, skin crawling or itching.The sensation is usually painless. Most people have experienced pins and needles. This feeling happens when legs have been crossed for too long and pressure is placed on a nerve. This is a temporary paraesthesia. It quickly goes away once the pressure is relieved. There are many possible causes for chronic paraesthesias. These include such disorders as stroke, herniated disk (pressing on a nerve), trapped nerve in the shoulder, elbow or wrist (such as carpal tunnel syndrome), vitamin deficiencies or even certain medicines. Laboratory tests are needed to make an accurate diagnosis. These tests may include blood tests, X-ray, CT (computerized tomography) scan or a muscle test (electromyography).Depending on the cause, treatment may include physical therapy. Home Care: Do not make any changes to your medicines without advice from your doctor. If vitamins have been prescribed, remember to take them daily at the recommended dose. Because of a decrease in feeling, a numb hand or foot may be more prone to injury. Take care to protect these areas from cuts, bumps, bruises, smart or other injury. Keep your nails trimmed and wash your hands and feet often. Wear shoes that fit well to avoid pressure points, blisters and ulcers. Look at your hands and feet carefully (including the soles of your feet and between your toes) at least once a week and notify your doctor of any open wounds or signs of infection. Follow Up with your doctor or as advised by our staff. You may need further testing to determine the exact cause of your paraesthesia. [NOTE: If blood tests, X-ray, CT scan or electromyography were done, specialists will review them. You will be notified of any new findings that may affect your care.] Get Prompt Medical Attention if any of the following occur: Numbness or weakness of the face, one arm or one leg Slurred speech, confusion, trouble speaking, walking or seeing Severe headache, fainting spell, dizziness or seizure Chest, arm, neck or upper back pain Loss of bladder or bowel control Open wound with redness, swelling or pus Lorazepam Oral tablet What is this medicine? LORAZEPAM (tita A ze alison) is a benzodiazepine. It is used to treat anxiety. How should I use this medicine? Take this medicine by mouth with a glass of water. Follow the directions on the prescription label. If it upsets your stomach, take it with food or milk. Take your medicine at regular intervals. Do not take it more often than directed. Do not stop taking except on the advice of your doctor or health day care director. Talk to your operations associate regarding the use of this medicine in children. Special care may be needed. What side effects may I notice from receiving this medicine? Side effects that you should report to your doctor or health day care director as soon as possible: changes in vision confusion depression mood changes, excitability or aggressive behavior movement difficulty, staggering or jerky movements muscle cramps restlessness weakness or tiredness Side effects that usually do not require medical attention (report to your doctor or health day care director if they continue or are bothersome): constipation or diarrhea difficulty sleeping, nightmares dizziness, drowsiness headache nausea, vomiting What may interact with this medicine? barbiturate medicines for inducing sleep or treating seizures, like phenobarbital clozapine medicines for depression, mental problems or psychiatric disturbances medicines for sleep phenytoin probenecid theophylline valproic acid What if I miss a dose? If you miss a dose, take it as soon as you can. If it is almost time for your next dose, take only that dose. Do not take double or extra doses. Where should I keep my medicine? Keep out of the reach of children. This medicine can be abused. Keep your medicine in a safe place to protect it from theft. Do not share this medicine with anyone. Selling or giving away this medicine is dangerous and against the law. Store at room temperature between 20 and 25 degrees C (68 and 77 degrees F). Protect from light. Keep container tightly closed. Throw away any unused medicine after the expiration date. What should I tell my health care provider before I take this medicine? They need to know if you have any of these conditions: alcohol or drug abuse problem bipolar disorder, depression, psychosis or other mental health condition glaucoma kidney or liver disease lung disease or breathing difficulties myasthenia gravis Parkinson's disease seizures or a history of seizures suicidal thoughts an unusual or allergic reaction to lorazepam, other benzodiazepines, foods, dyes, or preservatives or trying to get breast-feeding What should I watch for while using this medicine? Visit your doctor or health day care director for regular checks on your progress. Your body may become dependent on this medicine, ask your doctor or health day care director if you still need to take it. However, if you have been taking this medicine regularly for some time, do not suddenly stop taking it. You must gradually reduce the dose or you may get severe side effects. Ask your doctor or health day care director for advice before increasing or decreasing the dose. Even after you stop taking this medicine it can still affect your body for several days. You may get drowsy or dizzy. Do not drive, use machinery, or do anything that needs mental alertness until you know how this medicine affects you. To reduce the risk of dizzy and fainting spells, do not stand or sit up quickly, especially if you are an older patient. Alcohol may increase dizziness and drowsiness. Avoid alcoholic drinks. Do not treat yourself for coughs, colds or allergies without asking your doctor or health day care director for advice. Some ingredients can increase possible side effects. You have been given the following additional information: Headache, Unspecified Hyperventilation Syndrome Paraesthesias Lorazepam Oral tablet Do not work for three days. (Electronically signed by Nicholas Sullivan DO 11/25/2016 23:04)
--- NOTE | 2016-11-25 23:04 | ED MED RECONCILIATION SUMMARY ---
Patient: JOYA OAKES Medication Reconciliation Report [facility] VisitID: [id number] [address] [place] [address] 51y, F Registration Date/Time: 11/25/2016 Weight: 89.6 kg Height/Length: 67 in. BMI: 31.0 ALLERGIES: No Known Drug Allergy The patient's Home Medications are listed below: NONE. The source(s) of the original Home Medication information: patient The following Medications were given to the patient in the Emergency Department: IV NS IV Fluids bolus 0, then 1000 mL/hr, administered: 11/25/2016 4:54:00 PM Zofran [IVP] IVP 4 mg, administered: 11/25/2016 4:54:00 PM Ativan [IVP] IVP 0.5 mg, administered: 11/25/2016 5:00:00 PM The following Medications were prescribed to the patient: Ativan 1 mg: take 1 orally every 8 hours as needed for anxiety or sleep. Dispense ten (10). No refill. Substitution is permissible. -- Nicholas Sullivan,
== END 2016-11-25 18:15 | disposition home or self-care (01) ==
LOC: ED SRH 16:35
DX: G44.1 Vascular headache, not elsewhere classified (principal); R20.0 Anesthesia of skin; F41.1 Generalized anxiety disorder; R06.4 Hyperventilation
CPT/HCPCS: 90004; 90098; 90100; 90616; 91320; 91556; 92235; 92530; 92610; 92720; 92760; 92761; 92762; 92763; 92764; 92765; 92766; 92767; 93070; 93140; 94060; 95059; 95150